=== PATIENT | female | born 1985 | race Caucasian/White ===

== ENCOUNTER 2018-09-09 09:37 | Emergency (ER) | payer MEDICAID ==
[~2018-09-09] VITALS: Ht 177.8 cm; Wt 76.3 kg
[2018-09-09 09:50] VITALS: BP 156/82
[2018-09-09] MEDS ORDERED: CLON0.5T PO (10:03)
[2018-09-09] MEDS ORDERED: BIRTH CONTROL (10:04)
[2018-09-09] MEDS ORDERED: NAPR220C2 PO (10:04)
== END 2018-09-09 10:34 | disposition home or self-care (01) ==
LOC: ED 10:28
DX: F41.1 Generalized anxiety disorder (principal); Z76.0 Encounter for issue of repeat prescription; F17.200 Nicotine dependence, unspecified, uncomplicated
CPT/HCPCS: 99284

== ENCOUNTER 2018-10-03 11:20 | Emergency (ER) | payer MEDICAID ==
[~2018-10-03] VITALS: Ht 177.8 cm; Wt 75.6 kg
[~2018-10-03 11:20] MED LIST: BIRTH CONTROL; CLON0.5T PO; NAPR220C2 PO
[2018-10-03] MEDS ORDERED: ONDANSETRON ODT 4 MG ONE (11:53)
[2018-10-03] MEDS ORDERED: ONDANSETRON ODT 4 MG PO ONE (12:00)
[2018-10-03 12:57] LABS: BASOPHILS # (AUTO) 0.04 x10^3/uL (0-0.1); BASOPHILS % (AUTO) 1 % (0-1); EOSINOPHILS # (AUTO) 0.01 x10^3/uL (0-0.4); EOSINOPHILS % (AUTO) 0 % (1-7); LYMPHOCYTES # (AUTO) 0.94 x10^3/uL (1-3.4); LYMPHOCYTES % (AUTO) 12 % (22-44); MD NO; MEAN CORPUSCULAR HEMOGLOBIN 31.8 pg (27.0-34.8); MEAN CORPUSCULAR HGB CONC 34.8 g/dL (32.4-35.8); MEAN CORPUSCULAR VOLUME 91.4 fL (80-100); MEAN PLATELET VOLUME 8.8 fL (7.4-10.4); MONOCYTES # (AUTO) 0.25 x10^3/uL (0.2-0.8); MONOCYTES % (AUTO) 3 % (2-9); NEUTROPHILS # (AUTO) 6.92 x10^3/uL (1.8-6.8); NEUTROPHILS % (AUTO) 85 % (42-75); PLATELET COUNT 225 x10^3/uL (130-400); RED BLOOD COUNT 4.89 x10^6/uL (3.82-5.3); RED CELL DISTRIBUTION WIDTH 13.4 % (9.6-15.2)
[2018-10-03] MEDS ORDERED: DIPHENHYDRAMINE 50 MG/ML, 1ML IVPush ONE (13:00)
[2018-10-03] MEDS ORDERED: ZIPRASIDONE 20 MG INJ IM ONE ×2 (13:00→13:16)
[2018-10-03] MEDS ORDERED: SODIUM CHLORIDE FLUSH 10ML SYR IVF ONE (13:00)
[2018-10-03] MEDS ORDERED: KETOROLAC 30 MG/1 ML IVPush ONE (13:00)
[2018-10-03] MEDS ORDERED: SODIUM CHLORIDE 0.9% 1,000ML IVBOLUS ONE (13:00)
[2018-10-03 13:07] LABS: ALANINE AMINOTRANSFERASE 21 U/L (12-78); ANION GAP 7 mmol/L (5-15); CALCIUM 8.6 mg/dL (8.5-10.1); CHLORIDE 110 mmol/L (98-107); CREATININE 0.93 mg/dL (0.55-1.02)
[2018-10-03 13:09] LABS: ALKALINE PHOSPHATASE 63 U/L (45-117); BILIRUBIN,TOTAL 0.9 mg/dL (0.2-1.0); TOTAL PROTEIN 7.6 g/dL (6.4-8.2)
[2018-10-03] MEDS ORDERED: KETOROLAC 30 MG/1 ML ONE (13:16)
[2018-10-03] MEDS ORDERED: DIPHENHYDRAMINE 50 MG/ML, 1ML ONE (13:16)
[2018-10-03] MEDS ORDERED: METOCLOPRAMIDE 5 MG/ML, 2ML ONE (14:55)
[2018-10-03] MEDS ORDERED: METOCLOPRAMIDE 5 MG/ML, 2ML IVPush ONE (15:00)
[2018-10-03 15:43] VITALS: BP 121/72
== END 2018-10-03 15:46 | disposition home or self-care (01) ==
LOC: ED 14:26
DX: R11.2 Nausea with vomiting, unspecified (principal); R10.13 Epigastric pain; E73.9 Lactose intolerance, unspecified
CPT/HCPCS: 36415; 74021; 80053; 83690; 85025; 96361; 96372; 96374; 96375; 99284; J1200; J1885; J2765; J3486; J7030; Q0162

== ENCOUNTER 2019-05-06 12:29 | Emergency (ER) | payer MEDICAID ==
[~2019-05-06] VITALS: Ht 177.8 cm; Wt 84.0 kg
--- NOTE | 2019-05-06 12:41 | NUR ---
DR VARELA BS. PT C/O PANIC ATTACK - STARTED ABOUT 2 DAYS AGO, "SEEMS TO HAPPEN BETWEEN PRESCRIPTIONS". TAKES CLONOPIN. "TRAUMATIC FAMILY SHIT GO DOWN" CURRENTLY. MEDICATION APPT PENDING W/ PHYSICIAN. DENIES PALPITATION. LMP: NOW. RESP EVEN & UNLABORED, SPEECH CLEAR, SKIN WNL, PT SPEAKING CALMLY.
[2019-05-06] MEDS ORDERED: LORazepam 1MG TABLET ONE (12:52)
[2019-05-06] MEDS ORDERED: LORazepam 1MG TABLET PO ONE (13:00)
[2019-05-06 13:25] VITALS: BP 118/77
== END 2019-05-06 13:28 | disposition home or self-care (01) ==
LOC: ED 13:24
DX: F41.1 Generalized anxiety disorder (principal); F17.200 Nicotine dependence, unspecified, uncomplicated
CPT/HCPCS: 93005; 99284

== ENCOUNTER 2019-11-23 09:29 | Emergency (ER) | payer MEDICAID ==
[~2019-11-23] VITALS: Ht 177.8 cm; Wt 85.8 kg
[2019-11-23 09:40] VITALS: BP 116/77
[2019-11-23] MEDS ORDERED: KETOROLAC 30 MG/1 ML ONE (10:14)
[2019-11-23] MEDS ORDERED: HYDROcodone/APAP 5/325 TABLET ONE (10:14)
[2019-11-23] MEDS ORDERED: HYDROcodone/APAP 5/325 TABLET PO ONE (10:30)
[2019-11-23] MEDS ORDERED: KETOROLAC 30 MG/1 ML IM ONE (10:30)
== END 2019-11-23 10:36 | disposition home or self-care (01) ==
LOC: ED 10:21
DX: G89.29 Other chronic pain (principal); M25.552 Pain in left hip; F17.200 Nicotine dependence, unspecified, uncomplicated
CPT/HCPCS: 73502; 96372; 99283; J1885

== ENCOUNTER 2019-12-13 14:23 | Emergency (ER) | payer MEDICAID ==
[~2019-12-13] VITALS: Ht 177.8 cm; Wt 83.0 kg
[2019-12-13 14:24] VITALS: BP 137/71
[2019-12-13] MEDS ORDERED: KETOROLAC 30 MG/1 ML ONE ×3 (15:35→15:40)
[2019-12-13] MEDS ORDERED: KETOROLAC 30 MG/1 ML IM ONE (16:00)
== END 2019-12-13 16:13 ==
LOC: ED 14:55
DX: J06.9 Acute upper respiratory infection, unspecified (principal); J01.90 Acute sinusitis, unspecified; F17.200 Nicotine dependence, unspecified, uncomplicated
CPT/HCPCS: 71046; 96372; 99283; J1885

== ENCOUNTER 2020-04-21 09:58 | Observation (INO) | payer MEDICAID ==
[~2020-04-21] VITALS: Ht 177.8 cm; Wt 91.4 kg
[2020-04-21] MEDS ORDERED: ONDANSETRON 2MG/ML, 2ML ONE (10:49)
[2020-04-21] MEDS ORDERED: DIPHENHYDRAMINE 50 MG/ML, 1ML ONE (10:49)
[2020-04-21] MEDS ORDERED: FAMOTIDINE 20 MG/2 ML ONE (10:49)
[2020-04-21] MEDS ORDERED: DIPHENHYDRAMINE 50 MG/ML, 1ML IVPush ONE (11:00)
[2020-04-21] MEDS ORDERED: FAMOTIDINE 20 MG/2 ML IVPush ONE (11:00)
[2020-04-21] MEDS ORDERED: ONDANSETRON 2MG/ML, 2ML IVPush ONE (11:00)
[2020-04-21] MEDS ORDERED: SODIUM CHLORIDE FLUSH 10ML SYR IVF ONE (11:00)
[2020-04-21] MEDS ORDERED: SODIUM CHLORIDE 0.9% 1,000ML IVBOLUS ONE (11:00)
[2020-04-21 11:08] LABS: BASOPHILS # (AUTO) 0.04 x10^3/uL (0-0.1); BASOPHILS % (AUTO) 1 % (0-1); EOSINOPHILS # (AUTO) 0.14 x10^3/uL (0-0.4); EOSINOPHILS % (AUTO) 2 % (1-7); LYMPHOCYTES # (AUTO) 1.19 x10^3/uL (1-3.4); LYMPHOCYTES % (AUTO) 19 % (22-44); MD NO; MEAN CORPUSCULAR HEMOGLOBIN 30.9 pg (27.0-34.8); MEAN CORPUSCULAR VOLUME 93.6 fL (80-100); MEAN PLATELET VOLUME 9.1 fL (7.4-10.4); MONOCYTES # (AUTO) 0.33 x10^3/uL (0.2-0.8); MONOCYTES % (AUTO) 5 % (2-9); NEUTROPHILS # (AUTO) 4.53 x10^3/uL (1.8-6.8); NEUTROPHILS % (AUTO) 73 % (42-75); PLATELET COUNT 182 x10^3/uL (130-400); RED BLOOD COUNT 4.26 x10^6/uL (3.82-5.3)
--- NOTE | 2020-04-21 11:12 | NUR ---
pt in bed. cardiac, nibp, and o2 monitoring in place. iv access obtained and pt medicated per order. pt requesting tordal for pain. pt reassured that her request would be given to provider. labs complete at this time.
[2020-04-21 11:18] LABS: ALANINE AMINOTRANSFERASE 21 U/L (12-78); ALBUMIN 3.6 g/dL (3.4-5.0); ANION GAP 9 mmol/L (5-15); CALCIUM 8.4 mg/dL (8.5-10.1); CHLORIDE 113 mmol/L (98-107); CREATININE 0.78 mg/dL (0.55-1.02)
[2020-04-21 11:20] LABS: ALKALINE PHOSPHATASE 62 U/L (45-117); BILIRUBIN,TOTAL 0.5 mg/dL (0.2-1.0); TOTAL PROTEIN 6.6 g/dL (6.4-8.2)
[2020-04-21] MEDS ORDERED: KETOROLAC 30 MG/1 ML IVPush ONE (11:30)
[2020-04-21] MEDS ORDERED: MORPHINE SULFATE 4 MG/ML, 1ML ONE ×2 (11:31→13:06)
[2020-04-21] MEDS: MORPHINE SULFATE 4 MG/ML, 1ML IVPush PRN ×2 (11:35→13:14)
--- NOTE | 2020-04-21 11:35 | NUR ---
in room for call light. pt expresses symptoms of irritability and itchiness and states it is from the benadryl. provider made aware. pt again expressing pain to this rn. pt medicated per order.
--- NOTE | 2020-04-21 11:46 | NUR ---
in room to recheck pt. pt states relief of pain and is resting comfortably on bed.
[2020-04-21] MEDS ORDERED: KETOROLAC 30 MG/1 ML ONE (12:07)
[2020-04-21] MEDS ORDERED: SODIUM CHLORIDE 0.9% 1,000 ML IV ONE (12:07)
[2020-04-21] MEDS ORDERED: SODIUM CHLORIDE FLUSH 10ML SYR IVF PRN (12:30)
[2020-04-21] MEDS ORDERED: ONDANSETRON 2MG/ML, 2ML IVPush PRN (13:00)
[2020-04-21] MEDS ORDERED: ACETAMINOPHEN 325 MG TABLET PO PRN (13:00)
[2020-04-21] MEDS ORDERED: KETOROLAC 30 MG/1 ML IV PRN (13:00)
[2020-04-21] MEDS ORDERED: PROMETHAZINE 25 MG/ML, 1ML IM PRN (13:00)
[2020-04-21] MEDS ORDERED: LABETALOL 5MG/ML, 20ML IVPush PRN (13:00)
[2020-04-21] MEDS ORDERED: SUMATRIPTAN 25 MG TABLET PO PRN (13:00)
[2020-04-21] MEDS ORDERED: ENALAPRILAT 1.25 MG/ML, 2ML IVPush PRN (13:00)
[2020-04-21] MEDS ORDERED: DIPHENHYDRAMINE 50 MG/ML, 1ML IVPush PRN (13:00)
[2020-04-21 13:50] VITALS: BP 117/65
[2020-04-21] MEDS: METOCLOPRAMIDE 5 MG/ML, 2ML IVPush PRN ×2 (13:50→20:53)
[2020-04-21] MEDS: morphine SULFATE 10 MG/ML, 1ML IVPush PRN ×3 (13:50→20:52)
[2020-04-21 13:55] VITALS: BP 117/65
[2020-04-21] MEDS ORDERED: ENOXAPARIN 40 MG/0.4 ML SQ SCH (14:00)
[2020-04-21] MEDS: POTASSIUM CHLORIDE 20 MEQ in LACTATED RINGERS 1,000 ML IV SCH (16:55)
[2020-04-21 20:04] VITALS: BP 110/70
[2020-04-21] MEDS ORDERED: NICOTINE 14MG/24 HR PATCH.TD24 TD SCH (20:30)
[2020-04-22 00:19] VITALS: BP 121/79
[2020-04-22] MEDS: morphine SULFATE 10 MG/ML, 1ML IVPush PRN ×3 (00:26→08:05)
[2020-04-22] MEDS: POTASSIUM CHLORIDE 20 MEQ in LACTATED RINGERS 1,000 ML IV SCH (04:03)
[2020-04-22 04:57] VITALS: BP 121/81
[2020-04-22] MEDS: METOCLOPRAMIDE 5 MG/ML, 2ML IVPush PRN (04:59)
[2020-04-22 07:08] VITALS: BP 118/80
[2020-04-22] MEDS ORDERED: PANTOPRAZOLE 40MG TABLET PO SCH (07:30)
[2020-04-22] MEDS ORDERED: MAALOX/HYOSCYAMINE/LIDOCAINE 45 ML BTL PO PRN (08:30)
[2020-04-22] MEDS ORDERED: NICOTINE 14MG/24 HR PATCH.TD24 TD SCH (09:00)
[2020-04-22] MEDS ORDERED: SUCRALFATE 1 GM/10 ML UDC PO SCH (11:00)
== END 2020-04-22 12:18 | disposition home or self-care (01) ==
LOC: ED 11:00 → EDIP 12:51 → 3N 13:41
PROVIDERS: ADMIT Family Medicine; ATTEND Family Medicine
DX: R11.15 Cyclical vomiting syndrome unrelated to migraine (principal); R10.13 Epigastric pain; R10.84 Generalized abdominal pain; F43.9 Reaction to severe stress, unspecified; F41.9 Anxiety disorder, unspecified; G89.29 Other chronic pain; M25.559 Pain in unspecified hip; I10 Essential (primary) hypertension; F12.10 Cannabis abuse, uncomplicated; F19.20 Other psychoactive substance dependence, uncomplicated; F84.0 Autistic disorder; F95.2 Tourette's disorder; F17.210 Nicotine dependence, cigarettes, uncomplicated; Z79.899 Other long term (current) drug therapy
CPT/HCPCS: 36415; 80053; 83690; 85025; 96361; 96372; 96374; 96375; 96376; 99284; G0378; J1200; J1650; J1885; J2270; J2405; J2765; J3480; J3490; J7030; J7120